=== PATIENT | male | born 1950 | race Caucasian/White ===

== ENCOUNTER 2022-07-19 15:59 | Inpatient (IN) | payer MEDICARE, MEDICAID ==
[~2022-07-19] VITALS: Ht 185.4 cm; Wt 112.9 kg
[2022-07-19] MEDS ORDERED: SODIUM CHLORIDE 0.9% 1,000 ML IV ONE ×2 (16:30→18:00)
[2022-07-19] MEDS ORDERED: MORPHINE SULFATE 2 MG/ML SYRINGE IVP ONE ×2 (16:30→17:45)
[2022-07-19 16:53] LABS: BASOPHILS % (AUTO) 0.5 % (0.0-2.0); EOSINOPHILS % (AUTO) 0 % (1.0-6.0); HEMATOCRIT 34.4 % (41-53); HEMOGLOBIN 10.8 g/dL (13.5-17.5); LYMPHOCYTES # (AUTO) 0.3 K/uL (1.0-4.8); LYMPHOCYTES % (AUTO) 2.4 % (22.0-44.0); MEAN CORPUSCULAR HEMOGLOBIN 25.9 pg (26.0-34.0); MEAN CORPUSCULAR HGB CONC 31.5 G/dL (31.0-37.0); MEAN CORPUSCULAR VOLUME 82 fL (80-100); MONOCYTES % (AUTO) 7.5 % (2.0-9.0); NEUTROPHILS # (AUTO) 12.5 K/uL (1.8-7.7); PLATELET COUNT (AUTO) 115 K/uL (150-450); RED BLOOD CELL COUNT(AUTO) 4.18 MIL/uL (4.50-5.90); RED CELL DISTRIBUTION WIDTH 17.5 % (11.5-14.5)
[2022-07-19 16:54] LABS: NEUTROPHILS % (AUTO) 89.6 % (40.0-70.0)
[2022-07-19 17:02] LABS: CALCIUM, TOTAL 8.4 mg/dL (8.8-10.5); CREATININE 2.63 mg/dL (0.60-1.30); POTASSIUM 4.8 mmol/L (3.5-5.1)
[2022-07-19 17:27] LABS: ALBUMIN 2.9 g/dL (3.4-5.0); BILIRUBIN,TOTAL 3.8 mg/dL (0.1-1.0); TOTAL PROTEIN, SERUM 7.1 g/dL (6.4-8.2)
[2022-07-19] MEDS ORDERED: ASPIRIN 81 MG CHEWABLE TABLET PO ONE (17:30)
[2022-07-19 17:54] LABS: LACTIC ACID 3.2 mmol/L (0.4-2.0)
[2022-07-19] MEDS ORDERED: CefTRIAXone 1 GM/DEXTROSE 50 ML IV ONE (18:00)
[2022-07-19] MEDS ORDERED: ACETAMINOPHEN 325 MG TABLET PO PRN (18:45)
[2022-07-19] MEDS ORDERED: ONDANSETRON HCL 4 MG/2 ML VIAL IVP PRN (18:45)
[2022-07-19] MEDS ORDERED: MORPHINE SULFATE 2 MG/ML SYRINGE IVP PRN (18:45)
[2022-07-19] MEDS ORDERED: DEXTROSE 50%-WATER 25 GM/50 ML SYRINGE IVP ONE (21:05)
[2022-07-19] MEDS ORDERED: SODIUM CHLORIDE 0.9% 500 ML IV ONE (21:16)
[2022-07-19] MEDS ORDERED: SODIUM CHLORIDE 0.9% 1,000 ML IV SCH (23:00)
[2022-07-19] MEDS ORDERED: LORazepam 2 MG/ML VIAL IVP ONE (23:00)
[2022-07-19] MEDS ORDERED: PERMETHRIN 1% 60 ML LOTION TP ONE (23:15)
[2022-07-19] MEDS ORDERED: PERMETHRIN 5% 60 GM CREAM TP ONE (23:15)
[2022-07-20 00:42] LABS: GLUCOMETER DEV NAME(LOC) 5N.2C; GLUCOSE,POINT OF CARE 49 MG/DL (70-110)
[2022-07-20 04:00] VITALS: BP 98/52
[2022-07-20 04:31] LABS: GLUCOMETER DEV NAME(LOC) 5S.2C; GLUCOSE,POINT OF CARE 112 MG/DL (70-110)
[2022-07-20] MEDS ORDERED: LORazepam 2 MG/ML VIAL IVP ONE (06:00)
[2022-07-20] MEDS ORDERED: HEPARIN SODIUM,PORCINE 5,000 UNITS/ML VIAL IVP ONE (06:00)
[2022-07-20] MEDS ORDERED: HEPARIN SODIUM 25000 UNITS/D5W 250 ML IV PRN (06:00)
[2022-07-20] MEDS ORDERED: HEPARIN SODIUM,PORCINE 5,000 UNITS/ML VIAL IVP PRN ×2 (06:00)
[2022-07-20 07:02] LABS: BASOPHILS % (AUTO) 0.1 % (0.0-2.0); EOSINOPHILS % (AUTO) 0 % (1.0-6.0); HEMATOCRIT 38.3 % (41-53); HEMOGLOBIN 11.6 g/dL (13.5-17.5); LYMPHOCYTES % (AUTO) 5.4 % (22.0-44.0); MEAN CORPUSCULAR HEMOGLOBIN 25.8 pg (26.0-34.0); MEAN CORPUSCULAR HGB CONC 30.4 G/dL (31.0-37.0); MEAN CORPUSCULAR VOLUME 85 fL (80-100); MONOCYTES # (AUTO) 1.1 K/uL (0.1-1.0); MONOCYTES % (AUTO) 5.7 % (2.0-9.0); NEUTROPHILS # (AUTO) 16.6 K/uL (1.8-7.7); PLATELET COUNT (AUTO) 112 K/uL (150-450); RED CELL DISTRIBUTION WIDTH 18.1 % (11.5-14.5)
[2022-07-20 07:12] LABS: CALCIUM, TOTAL 8.3 mg/dL (8.8-10.5); CREATININE 3.1 mg/dL (0.60-1.30); POTASSIUM 4.6 mmol/L (3.5-5.1)
[2022-07-20 07:36] LABS: NEUTROPHILS % (AUTO) 88.8 % (40.0-70.0)
[2022-07-20] MEDS: NOREPINEPHRINE 8 MG/D5%-WATER 250 ML IV PRN ×2 (08:24→17:27)
[2022-07-20] MEDS ORDERED: BISACODYL 10 MG RECTAL RECTAL SUPPOSITORY PR PRN (08:30)
[2022-07-20] MEDS ORDERED: ZOLPIDEM TARTRATE 5 MG TABLET PO PRN (08:30)
[2022-07-20] MEDS ORDERED: ALBUTEROL SULFATE 2.5 MG/0.5 ML NEB SOLUTION NEB PRN (08:30)
[2022-07-20] MEDS ORDERED: ONDANSETRON HCL 4 MG/2 ML VIAL IVP PRN (08:30)
[2022-07-20] MEDS ORDERED: HYDROCODONE/ACETAMINOPHEN 5-325 MG TABLET PO PRN (08:30)
[2022-07-20] MEDS ORDERED: IPRATROPIUM BROMIDE 0.5 MG/2.5 ML NEB SOLUTION NEB PRN (08:30)
[2022-07-20] MEDS ORDERED: ACETAMINOPHEN 325 MG TABLET PO PRN (08:30)
[2022-07-20] MEDS ORDERED: MAGNESIUM HYDROXIDE SUSPENSION 30 ML UDCUP PO PRN (08:30)
[2022-07-20 08:48] LABS: INR 1.7 (0.9-1.1); PROTHROMBIN TIME 17.2 SEC (9.4-11.6)
[2022-07-20] MEDS: DOCUSATE SODIUM 100 MG CAPSULE PO SCH ×2 (09:00→20:57)
[2022-07-20] MEDS: ASPIRIN 81 MG DR TABLET PO SCH (09:00)
[2022-07-20] MEDS: ATORVASTATIN CALCIUM 40 MG TABLET PO SCH (09:00)
[2022-07-20 09:58] LABS: ABG BASE EXCESS -5.1 mmol/L (-2.0-3.0); ABG CARBOXYHEMOGLOBIN 0.6 % (0.0-1.5); ABG HCO3 20.7 mmol/L (22.0-26.0); ABG METHEMOGLOBIN 0.3 % (0.0-1.5); ABG OXYGEN CONTENT 15.6 mL/dL (15.0-23.0); ABG OXYGEN SATURATION 91.6 % (95.0-98.0); ABG OXYHEMOGLOBIN 90.8 % (94.0-100.0); ABG PCO2 35 mmHg (35-45); ABG PH 7.377 (7.35-7.450); ABG TOTAL HEMOGLOBIN 12.2 G/dL (12.0-18.0); SOURCE, BLOOD GAS ARTERIAL; TEMPERATURE, FAHRENHEIT, BG 98.6 FAHREN (96.0-98.6)
[2022-07-20 09:59] LABS: ABG A-A DIFF O2 95.3 mmHg (10-20.0); O2 DEVICE,BLOOD GAS CANNULA (ROOM AIR); SITE, BLOOD GAS RT RADIAL
[2022-07-20] MEDS ORDERED: FUROSEMIDE 20 MG/2 ML VIAL IVP ONE (10:15)
[2022-07-20 10:46] LABS: GLUCOSE,POINT OF CARE 120 MG/DL (70-110)
[2022-07-20] MEDS: PANTOPRAZOLE SODIUM 40 MG/VIAL IVP SCH (11:50)
[2022-07-20] MEDS: PIPERACILLIN SODIUM/TAZOBACTAM 2.25 GM in DEXTROSE 5%-WATER 50 ML IV SCH ×3 (11:50→20:57)
[2022-07-20 12:00] VITALS: BP 88/46
[2022-07-20 16:00] VITALS: BP 98/34
[2022-07-20] MEDS ORDERED: HEPARIN SODIUM,PORCINE 5,000 UNITS/ML VIAL SQ SCH (16:00)
[2022-07-20] MEDS ORDERED: BUMETANIDE 0.25 MG/ML 4 ML VIAL IVP ONE (17:45)
[2022-07-20 17:53] LABS: APPEARANCE,URINE TURBID (CLEAR); GLUCOSE, URINE (UA) NEGATIVE (NEGATIVE); KETONES,URINE NEGATIVE (NEGATIVE); LEUKOCYTE ESTERASE ,URINE LARGE (NEGATIVE); NITRATE,URINE NEGATIVE (NEGATIVE); OCCULT BLOOD,URINE LARGE (NEGATIVE); PROTEIN,URINE 300-600,SEE CONFIRM mg/dL (NEGATIVE); SPECIFIC GRAVITIY, URINE 1.023 (1.003-1.030); UROBILINOGEN,URINE <=1.0 mg/dL (<=1.0)
[2022-07-20 17:55] LABS: BILIRUBIN,URINE SMALL (NEGATIVE)
[2022-07-20 17:59] LABS: RBC,URINE 51-100 /HPF (0-2); SULFOSALICYLIC ACID,URINE 3+ (Negative); WBC,URINE >100 /HPF (0-5)
[2022-07-20 18:00] LABS: BACTERIA,URINE Few /HPF (None Seen); SQUAMOUS EPITHELIAL CELL,UR Rare /LPF (None Seen)
[2022-07-20 20:00] VITALS: BP 106/47
[2022-07-20] MEDS: MORPHINE SULFATE 2 MG/ML SYRINGE IVP PRN (23:52)
[2022-07-21] VITALS: BP 93/53
[2022-07-21] MEDS: NOREPINEPHRINE 8 MG/D5%-WATER 250 ML IV PRN ×3 (02:02→17:27)
[2022-07-21] MEDS: MORPHINE SULFATE 2 MG/ML SYRINGE IVP PRN (02:03)
[2022-07-21] MEDS: PIPERACILLIN SODIUM/TAZOBACTAM 2.25 GM in DEXTROSE 5%-WATER 50 ML IV SCH ×3 (03:29→15:54)
[2022-07-21 03:56] LABS: GLUCOSE,POINT OF CARE 111 MG/DL (70-110)
[2022-07-21 04:00] VITALS: BP 108/53
[2022-07-21 06:55] LABS: GLUCOSE,POINT OF CARE 105 MG/DL (70-110)
[2022-07-21] MEDS ORDERED: PANT-31 PO (07:25)
[2022-07-21] MEDS ORDERED: PIOG45TA4 PO (07:25)
[2022-07-21] MEDS ORDERED: TAMS-13 PO (07:25)
[2022-07-21] MEDS ORDERED: ATOR40TA28 PO (07:25)
[2022-07-21] MEDS ORDERED: DICL100G51 TP (07:25)
[2022-07-21] MEDS ORDERED: CLOP75TA60 PO (07:25)
[2022-07-21] MEDS ORDERED: INSU100V42 SQ (07:25)
[2022-07-21] MEDS ORDERED: FURO40 PO (07:25)
[2022-07-21] MEDS ORDERED: MULT-248 PO (07:25)
[2022-07-21] MEDS ORDERED: INSNOV SQ (07:25)
[2022-07-21] MEDS ORDERED: SACU1TAB PO (07:25)
[2022-07-21] MEDS ORDERED: SENN-187 PO (07:25)
[2022-07-21] MEDS ORDERED: ASPI-1450 PO (07:25)
[2022-07-21 08:00] VITALS: BP 105/52
[2022-07-21] MEDS: PANTOPRAZOLE SODIUM 40 MG/VIAL IVP SCH (08:04)
[2022-07-21] MEDS: DOCUSATE SODIUM 100 MG CAPSULE PO SCH ×2 (08:04→09:00)
[2022-07-21] MEDS: ATORVASTATIN CALCIUM 40 MG TABLET PO SCH ×2 (08:04→09:00)
[2022-07-21] MEDS: ASPIRIN 81 MG DR TABLET PO SCH ×2 (08:04→09:00)
[2022-07-21 08:14] LABS: BASOPHILS % (AUTO) 0.5 % (0.0-2.0); EOSINOPHILS % (AUTO) 0.1 % (1.0-6.0); HEMATOCRIT 36.2 % (41-53); HEMOGLOBIN 11.3 g/dL (13.5-17.5); LYMPHOCYTES # (AUTO) 0.6 K/uL (1.0-4.8); LYMPHOCYTES % (AUTO) 4.5 % (22.0-44.0); MEAN CORPUSCULAR HEMOGLOBIN 26.1 pg (26.0-34.0); MEAN CORPUSCULAR HGB CONC 31.1 G/dL (31.0-37.0); MEAN CORPUSCULAR VOLUME 84 fL (80-100); MONOCYTES # (AUTO) 0.6 K/uL (0.1-1.0); NEUTROPHILS # (AUTO) 11.2 K/uL (1.8-7.7); PLATELET COUNT (AUTO) 94 K/uL (150-450); RED BLOOD CELL COUNT(AUTO) 4.32 MIL/uL (4.50-5.90); RED CELL DISTRIBUTION WIDTH 17.9 % (11.5-14.5)
[2022-07-21 08:28] LABS: NEUTROPHILS % (AUTO) 89.9 % (40.0-70.0)
[2022-07-21 08:32] LABS: CALCIUM, TOTAL 7.8 mg/dL (8.8-10.5); CHOL/HDL RATIO 6.1 (4.2-7.3); CREATININE 3.8 mg/dL (0.60-1.30); MAGNESIUM 1.2 mg/dL (1.80-2.40); PHOSPHORUS 5.1 mg/dL (2.5-4.9); POTASSIUM 4.7 mmol/L (3.5-5.1)
[2022-07-21] MEDS ORDERED: DEXMEDETOMIDINE HCL 400 MCG in SODIUM CHLORIDE 0.9% 96 ML IV PRN (11:45)
[2022-07-21 12:00] VITALS: BP 95/45
[2022-07-21 12:56] LABS: ABG A-A DIFF O2 198.6 mmHg (10-20.0); ABG BASE EXCESS -5.1 mmol/L (-2.0-3.0); ABG CARBOXYHEMOGLOBIN 0.7 % (0.0-1.5); ABG HCO3 20.3 mmol/L (22.0-26.0); ABG METHEMOGLOBIN 0.3 % (0.0-1.5); ABG OXYGEN CONTENT 15.9 mL/dL (15.0-23.0); ABG OXYGEN SATURATION 92.4 % (95.0-98.0); ABG OXYHEMOGLOBIN 91.5 % (94.0-100.0); ABG PCO2 42 mmHg (35-45); ABG TOTAL HEMOGLOBIN 12.3 G/dL (12.0-18.0); O2 DEVICE,BLOOD GAS CANNULA (ROOM AIR); PO2, ARTERIAL BG 68.4 mmHg (75.0-83.0); SITE, BLOOD GAS ARTERIAL LINE; SOURCE, BLOOD GAS ARTERIAL; TEMPERATURE, FAHRENHEIT, BG 97.6 FAHREN (96.0-98.6)
[2022-07-21 16:00] VITALS: BP 111/51
== END 2022-07-21 17:40 | DRG 871 ==
LOC: EMS 16:02 → 5S 18:35 → ICU 21:59
PROVIDERS: ADMIT Hospitalist; ATTEND Hospitalist
PROC: 06HM33Z Insertion of Infusion Device into Right Femoral Vein, Percutaneous Approach (ICD-10-PCS; 2022-07-19)
PROC: B54BZZA Ultrasonography of Right Lower Extremity Veins, Guidance (ICD-10-PCS; 2022-07-19)
PROC: 04HY32Z Insertion of Monitoring Device into Lower Artery, Percutaneous Approach (ICD-10-PCS; 2022-07-19)
PROC: 4A133B1 Monitoring of Arterial Pressure, Peripheral, Percutaneous Approach (ICD-10-PCS; 2022-07-19)
PROC: 4A133J1 Monitoring of Arterial Pulse, Peripheral, Percutaneous Approach (ICD-10-PCS; 2022-07-19)
PROC: 05HY33Z Insertion of Infusion Device into Upper Vein, Percutaneous Approach (ICD-10-PCS; principal; 2022-07-20)
DX: A41.9 Sepsis, unspecified organism (principal); G93.41 Metabolic encephalopathy; I21.4 Non-ST elevation (NSTEMI) myocardial infarction; I50.23 Acute on chronic systolic (congestive) heart failure; J18.9 Pneumonia, unspecified organism; J96.01 Acute respiratory failure with hypoxia; N17.0 Acute kidney failure with tubular necrosis; I13.0 Hypertensive heart and chronic kidney disease with heart failure and stage 1 through stage 4 chronic kidney disease, or unspecified chronic kidney disease; I42.9 Cardiomyopathy, unspecified; E87.20 Acidosis, unspecified; N39.0 Urinary tract infection, site not specified; Z68.32 Body mass index [BMI] 32.0-32.9, adult; Z66 Do not resuscitate; E66.01 Morbid (severe) obesity due to excess calories; B86 Scabies; D69.6 Thrombocytopenia, unspecified; D63.8 Anemia in other chronic diseases classified elsewhere; G89.29 Other chronic pain; E11.22 Type 2 diabetes mellitus with diabetic chronic kidney disease; I25.10 Atherosclerotic heart disease of native coronary artery without angina pectoris; E78.5 Hyperlipidemia, unspecified; N40.0 Benign prostatic hyperplasia without lower urinary tract symptoms; K21.9 Gastro-esophageal reflux disease without esophagitis; M25.511 Pain in right shoulder; M54.9 Dorsalgia, unspecified; I07.1 Rheumatic tricuspid insufficiency; I48.91 Unspecified atrial fibrillation; N18.9 Chronic kidney disease, unspecified; Z95.1 Presence of aortocoronary bypass graft; Z98.61 Coronary angioplasty status
CPT/HCPCS: 36245; 36569; 51702; 70450; 71045; 76937; 80048; 80053; 80061; 81001; 81002; 82550; 82805; 82962; 83605; 83735; 83880; 84100; 84484; 85025; 85610; 85730; 87040; 87081; 87086; 87186; 92523; 92526; 92610; 93005; 93306; 99291; C9113; G0378; J0696; J1644; J1940; J2060; J2270; J2543; J3490; J7030; J7040; J7050; J7060; Q9967; 36415-L1; 36415-TC